=== PATIENT | male | born 1980 | race Caucasian/White ===

== ENCOUNTER 2021-02-27 08:30 | Emergency (ER) | payer BC ==
[2021-02-27 10:02] LABS: HEMOGLOBIN 14.5 gm/dl (14.0-17.5); RED BLOOD COUNT 4.98 M/UL (4.20-5.50); WHITE BLOOD COUNT 6.5 K/UL (4.5-11.0)
[2021-02-27 11:03] LABS: BUN/CREATININE RATIO 18 (0-10)
== END 2021-02-27 12:20 | disposition home or self-care (01) ==
LOC: ER1 08:30
PROVIDERS: Physician Assistant
DX: R10.11 Right upper quadrant pain (principal); R10.13 Epigastric pain
CPT/HCPCS: 80053; 81001; 83690; 85025; 96374; 99284; J1885; Q9967